=== PATIENT | female | born 1970 | race Caucasian/White ===

== ENCOUNTER → 2022-03-07 | Outpatient (CLI) | payer BC, OTHER ==
[~2022-03-07] MED LIST: ACET-683 PO; ALEV220C2 PO; ALEV220T22 PO; ATOR1TAB21; ATOR80TA59 PO; CARI1TAB7 PO; DEXT15CA13 PO; DEXT15CA5; DILT1TAB3 PO; DILT240C47; DULO1CAP6; DULO1CAP6 PO; FAMC500T PO; FLON1SPR; IBUP-1022 PO; IBUP200C25 PO; OMEP1CAP73 PO; PROV108A INH; RANI150T; TIZA4CAP PO; TRAZ-252 PO; TRIA75TA10 PO; excedrin PO; lidex TOP
[2022-03-07 16:46] LABS: THYROID STIMULATING HORMONE 0.681 uIU/ML (0.358-3.740)
== END ==
LOC: M WUC 13:41
PROVIDERS: ATTEND Internal Medicine Cardiovascular Disease
DX: R06.02 Shortness of breath (principal); I10 Essential (primary) hypertension

== ENCOUNTER → 2022-04-22 | Outpatient (REF) | payer BC, OTHER | LOC: M LAB REF 16:30 | PROVIDERS: ATTEND Physician Assistant Medical | DX: R50.9 Fever, unspecified (principal) ==

== ENCOUNTER → 2022-07-07 | Outpatient (CLI) | payer BC, OTHER ==
[~2022-07-07] MED LIST changes: +ACYC1TAB4 PO; +ALBU6.7H6 INH; +ALPR0.25 PO; +CLAR10CA3 PO; +DEXT15CA5 PO; +IBUP-1114 PO; +MAPA500C PO; +OMEP-173 PO; -PROV108A INH; +TELM1TAB17 PO; +TIZA10TA PO
== END ==
LOC: M LABSMTC 10:54
PROVIDERS: ATTEND Internal Medicine Gastroenterology
DX: Z01.812 Encounter for preprocedural laboratory examination (principal); Z20.822 Contact with and (suspected) exposure to COVID-19

== ENCOUNTER 2022-07-10 08:07 | Day surgery (SDC) | payer BC, OTHER ==
[~2022-07-10] VITALS: Ht 154.9 cm; Wt 81.8 kg
[~2022-07-10 08:07] MED LIST changes: +NS 1,000 ML IV ONE
[2022-07-10] MEDS ORDERED: propofoL 200 MG/20 ML VIAL As Ordered ONE ×2 (08:37→09:32)
[2022-07-10] MEDS ORDERED: LIDOCAINE 2% 100MG/5ML SDV (FOR ANES.) As Ordered ONE (08:37)
[2022-07-10] MEDS ORDERED: fentaNYL 100 MCG/2 ML INJECTION As Ordered ONE (09:11)
[2022-07-10] MEDS ORDERED: ePHEDrine SULFATE 25 MG/5 ML(5MG/ML) SYRINGE As Ordered ONE (09:31)
[2022-07-10 10:00] VITALS: BP 101/51
== END 2022-07-10 10:57 | disposition home or self-care (01) ==
LOC: M OPP 08:07
PROVIDERS: ATTEND Internal Medicine Gastroenterology
DX: Z12.11 Encounter for screening for malignant neoplasm of colon (principal); D12.6 Benign neoplasm of colon, unspecified; K64.0 First degree hemorrhoids; K57.30 Diverticulosis of large intestine without perforation or abscess without bleeding; K31.89 Other diseases of stomach and duodenum; Z79.02 Long term (current) use of antithrombotics/antiplatelets; Z79.1 Long term (current) use of non-steroidal anti-inflammatories (NSAID); Z79.52 Long term (current) use of systemic steroids; Z79.899 Other long term (current) drug therapy; G43.909 Migraine, unspecified, not intractable, without status migrainosus; I10 Essential (primary) hypertension; E78.00 Pure hypercholesterolemia, unspecified; K74.60 Unspecified cirrhosis of liver; F17.200 Nicotine dependence, unspecified, uncomplicated
CPT/HCPCS: 43239; 45385; 88305; J3010

== ENCOUNTER 2023-06-12 01:14 | Emergency (ER) | payer OTHER, SELFPAY ==
[~2023-06-12] VITALS: Ht 154.9 cm; Wt 81.2 kg
[~2023-06-12 01:14] MED LIST changes: -NS 1,000 ML IV ONE
[2023-06-12 01:15] VITALS: BP 227/98; TEMP 97.2; O2SAT 96
[2023-06-12] MEDS ORDERED: ONDANSETRON 4MG ORAL DISINTEGRATING TAB PO ONE (01:35)
== END 2023-06-12 05:51 | disposition left against medical advice (07) ==
LOC: M ED 01:14
DX: Z53.21 Procedure and treatment not carried out due to patient leaving prior to being seen by health care provider (principal)

== ENCOUNTER 2024-09-14 13:10 | Emergency (ER) | payer BC, SELFPAY ==
[~2024-09-14] VITALS: Ht 154.9 cm; Wt 78.7 kg
[2024-09-14 15:16] LABS: BASO # 0.1 10^3/uL (0.0-0.2); BASO % 0.8 % (0.0-1.0); EOS # 0.2 10^3/uL (0.0-0.5); EOS % 1.5 % (0.0-3.0); HEMATOCRIT 44.5 % (36.0-47.0); HEMOGLOBIN 14.3 g/dl (12.0-15.5); LYMPH % 18.8 % (24.0-44.0); MEAN CORPUSCULAR HEMOGLOBIN 29.1 pg (27.0-33.0); MEAN CORPUSCULAR HGB CONC 32.1 g/dl (32.0-36.5); MEAN CORPUSCULAR VOLUME 90.4 fl (80.0-96.0); MONO # 0.7 10^3/uL (0.0-0.8); MONO % 6.4 % (2.0-8.0); NEUTROPHILS # 7.5 10^3/uL (1.5-8.5); NEUTROPHILS % 72.1 % (36.0-66.0); PLATELET COUNT, AUTOMATED 357 10^3/uL (150-450); RED BLOOD COUNT 4.92 10^6/uL (4.00-5.40); WHITE BLOOD COUNT 10.4 10^3/uL (4.0-10.0)
[2024-09-14 15:37] LABS: BLOOD UREA NITROGEN 12 MG/DL (9-23); CALCIUM LEVEL 9.5 MG/DL (8.5-10.1); CARBON DIOXIDE LEVEL 32 MMOL/L (20-31); CHLORIDE LEVEL 105 MMOL/L (98-107); CREATININE FOR GFR 0.77 MG/DL (0.55-1.30); GLOMERULAR FILTRATION RATE > 60.0 (>51); GLUCOSE, FASTING 99 MG/DL (60-100); POTASSIUM SERUM 3.6 MMOL/L (3.5-5.1); SODIUM LEVEL 144 MMOL/L (136-145)
[2024-09-14] MEDS ORDERED: ISOVUE-370 76% 100ML VIAL As Ordered ONE (19:34)
[2024-09-14] MEDS ORDERED: KETOROLAC 30 MG/ML 1ML VIAL IV ONE (20:00)
[2024-09-14] MEDS: NORCO, ANEXSIA 5/325MG TABLET (HYDROcodone/ACETAMINOPHEN) PO ONE (20:15)
[2024-09-14] MEDS: dilTIAZem 120MG **CD** CAPSULE PO ONE (20:38)
[2024-09-14] MEDS: TELMISARTAN 20 MG TAB PO ONE (20:39)
[2024-09-14 22:59] VITALS: BP 168/86; TEMP 99.4; O2SAT 98
== END 2024-09-14 23:00 | disposition home or self-care (01) ==
LOC: M ED 13:10
DX: L03.211 Cellulitis of face (principal); I10 Essential (primary) hypertension; E78.5 Hyperlipidemia, unspecified; J45.909 Unspecified asthma, uncomplicated; K21.9 Gastro-esophageal reflux disease without esophagitis; F17.210 Nicotine dependence, cigarettes, uncomplicated; Z91.09 Other allergy status, other than to drugs and biological substances; Z79.1 Long term (current) use of non-steroidal anti-inflammatories (NSAID); Z79.51 Long term (current) use of inhaled steroids; Z79.899 Other long term (current) drug therapy
CPT/HCPCS: 36415; 70491; 80048; 85025; 99284; Q9967